=== PATIENT | female | born 1985 | race Caucasian/White ===

== ENCOUNTER 2020-07-09 13:50 | Emergency (ER) | payer BC ==
[~2020-07-09] VITALS: Wt 72.6 kg
== END 2020-07-09 16:50 | disposition left against medical advice (07) ==
LOC: ED 13:50
DX: K46.9 Unspecified abdominal hernia without obstruction or gangrene (principal); Z53.21 Procedure and treatment not carried out due to patient leaving prior to being seen by health care provider

== ENCOUNTER 2020-07-13 10:10 | Emergency (ER) | payer BC ==
[~2020-07-13] VITALS: Ht 167.6 cm; Wt 72.6 kg
[2020-07-13] MEDS ORDERED: MEDROL DOSEPAK4 MG PO (12:36)
[2020-07-13] MEDS ORDERED: Motrin,Rufen800 MG PO (12:36)
[2020-07-13] MEDS ORDERED: ROBAXIN-750750 MG PO (12:36)
== END 2020-07-13 12:41 | disposition home or self-care (01) ==
LOC: ED 10:10
DX: S39.012A Strain of muscle, fascia and tendon of lower back, initial encounter (principal); F17.200 Nicotine dependence, unspecified, uncomplicated; X58.XXXA Exposure to other specified factors, initial encounter; Y93.89 Activity, other specified; Y92.89 Other specified places as the place of occurrence of the external cause; Y99.8 Other external cause status